=== PATIENT | female | born 1975 | race Two or more races ===

== ENCOUNTER → 2024-10-22 | Outpatient (CLI) | payer MEDICAID, SELFPAY ==
--- NOTE | 2024-10-22 | XR_ITS ---
Examination: MRI abdomen with intravenous contrast. MRI abdomen without intravenous contrast. Date and time of exam: October 22, 2024 1612 hours INDICATIONS: Upper abdominal pain one year, solid-appearing mass anterior margin left kidney on CT abdomen pelvis November 24, 2023 Technique: Multiple axial, sagittal and coronal sections of the abdomen obtained. Transverse images, TR 6020, TE 107. T1 weighted transverse images, TR 582, TE 9.5. T2-weighted sagittal images, TR 4000, TE 105. T2-weighted sagittal images, TR 4000, TE 5. Coronal images, TR 4210, TE 107. Axial and coronal images are obtained post 20 cc intravenous injection, gadolinium. Findings: Hepatomegaly 19 cm tiny numerous liver cysts No intrahepatic biliary tract dilatation Absent gallbladder Normal common hepatic common bile duct Spleen not enlarged No pancreatic mass Bilateral benign renal cysts, the largest anterior margin left kidney 15 mm No mass anterior to the left kidney is noted on this study No ascites Aorta normal size No abdominal lymphadenopathy IMPRESSION: Hepatomegaly, 19 cm Bilateral benign renal cysts, the largest anterior margin left kidney 15 mm No renal solid mass lesion No mass anterior to the left kidney is noted on this study, recommend 3 month follow-up CT scan abdomen post intravenous contrast to compare with the November 24, 2023 exam
== END | disposition home or self-care (01) ==
LOC: SMRI 15:44
PROVIDERS: PCP Family Medicine; Referring Provider Physician Assistant; Visit Provider Physician Assistant
DX: N28.89 Other specified disorders of kidney and ureter (principal); R16.0 Hepatomegaly, not elsewhere classified; N28.1 Cyst of kidney, acquired
CPT/HCPCS: 74183; A9579

== ENCOUNTER 2025-03-25 05:03 | Emergency (ER) | payer MEDICAID, SELFPAY ==
[2025-03-25 05:10] VITALS: BP 127/78; PULSE 93; RESP 18; TEMP 37.4; O2SAT 98
[2025-03-25 05:11] VITALS: BMI 35.8
[2025-03-25] MEDS: DEXAMETHASONE SOD PHOS INJ 10 MG/ML VIAL PO (05:25)
--- NOTE | 2025-03-25 05:40 | EDNOTE_ITS ---
Upper Respiratory Inf. RME/HPI General Chief Complaint: Dental/Oral/Throat Stated Complaint: SORE THROAT Time Seen by Provider: 03/25/25 05:38 Arrival date/time: 03/25/25 05:03 49F with no significiant PMH presents to ED with 3 days of sore throat and some difficulty swallowing. Patient denies cough. Limitations: no limitations Related Data Previous Rx's ?Medication ?Instructions ?Recorded acetaminophen 500 mg capsule 1,000 mg (2 x 500 mg) PO TID #30 04/24/23 caps ibuprofen 600 mg tablet 600 mg PO TID PRN pain #30 t abs 04/24/23 amoxicillin 875 mg-potassium 1 tab PO BID 10 days #20 tabs 03/25/25 clavulanate 125 mg tablet Allergies Allergy/AdvReac Type Severity Reaction Status Date / Time morphine Allergy Verified 03/25/25 05:04 Review of Systems Review of Systems Systems Reviewed: All systems reviewed, normal except as documented ENT Ears, Nose, Mouth, and Throat: Reports sore throat and Reports throat swelling Allergic/Immunologic Allergic/Immunologic: Reports throat swelling Past Medical History Past Medical History CARDIAC: Negative Congestive Heart Failure RESPIRATORY: Negative Chronic Obstructive Pulmonary Disease (COPD) GENITOURINARY: Negative Renal Disease ENDOCRINE: Negative Diabetes Mellitus Type 1 or Diabetes Mellitus Type 2 PSYCHO/SOCIAL: Positive Depression and Anxiety OTHER HISTORY: Negative Cancer Surgical History SURGICAL: Positive Abdominal Surgery Social History SMOKING STATUS: Current every day smoker ED Exam General Limitations: Present no limitations General appearance: Present alert and in no apparent distress Head Head exam: Present atraumatic ENT ENT exam: Present mucous membranes moist Expanded ENT Exam Throat exam: Present tonsillar erythema, tonsillomegaly, tonsillar exudate and muffled voice (some); Absent R peritonsillar mass or L peritonsillar mass Neck Neck exam: Present normal inspection, full ROM and trachea midline Chest Chest inspection: Present normal inspection and symmetric chest wall rise Neurological Exam Neurological exam: Present alert and oriented X3 Psychiatric Psychiatric exam: Present normal affect and normal mood Skin Skin exam: Present warm, dry, intact and normal color Course Quality Measures none Orders Category Date Time Status Strep A Rapid Stat Lab 03/25/25 05:15 Completed Dexamethasone Inj [Decadron Inj] Med 03/25/25 05:13 Discontinued 10 mg PO X1 ONE Vital Signs Vital signs: Vital Signs Temperature 99.4 F 03/25/25 05:10 Pulse Rate 93 03/25/25 05:10 Respiratory Rate 18 03/25/25 05:10 Blood Pressure 127/78 03/25/25 05:10 Pulse Oximetry (%) 98 03/25/25 05:10 Oxygen Delivery Method Room Air 03/25/25 05:10 O2 at 98% on RA and WNLs Upper Respiratory Infection MDM Narrative MDM Narrative:: 49F with no significiant PMH presents to ED with 3 days of sore throat and some difficulty swallowing. Patient denies cough. Physical exam reveals red and swollen oropharynx with exudates. Some muffled voice. No uvula deviation. No tongue elevation. Patient is afebrile, calm, and alert. Swabs neg. Will still treat based on presentation, possible false neg, and to help it not progress to abscess. Patient data External records reviewed:: [facility] previous records Clinical information provided by:: patient Social determinants that could affect healthcare access:: none Patient has the following chronic illnesses:: none How is presenting disease/condition affected by chronic disease/condition?: no chronic disease Evaluation data The following diagnostics were reviewed and interpreted by me:: lab results Lab and/or radiology exams considered but not ordered:: ordered Interpretation Summary: above Medications / Prescriptions Medications or Prescriptions considered but not ordered:: ordered Medication administrations:: Medication Administration History Discontinued Medications Dexamethasone Sodium Phosphate (Dexamethasone Sod Phos Inj 10 Mg/Ml Vial) 10 mg PO X1 ONE Stop: 03/25/25 05:14 Last Admin: 03/25/25 05:25 Dose: 10 mg Documented By: CVL above Consultations Consultation(s) initiated? (list below): No Diagnosis Upper Respiratory Differential Diagnosis: upper respiratory infection, croup, otitis media, sinusitis, viral infection, bronchitis, influenza, pharyngitis and other (tonsillitis) Most likely diagnosis given after review of the tests above:: tonsillitis Admission Indicated Admission indicated?: not indicated Admission Request Was there a request for admission?: No Disposition Plan Disposition Plan: Discharge Discharge Attestation Discharge Attestation: The patient and all family members were given an opportunity to ask questions and understood the discharge instructions. Discharge instructions specifically effects, indications for sooner follow up or return to the emergency department, and the expected course of current diagnosis. Patient condition: Stable Discharge Plan Plan Patient Disposition: HOME (Self Care) Discharge Disposition comment: Stable Prescriptions/Referrals Prescriptions/Med Rec: New amoxicillin-pot clavulanate 875-125 mg tablet 1 tab PO BID 10 Days Qty: 20 0RF No Action ibuprofen 600 mg tablet 600 mg PO TID PRN (Reason: pain) Qty: 30 0RF acetaminophen 500 mg capsule 1,000 mg PO TID Qty: 30 0RF Referrals: No Primary/Family,Physician [Primary Care Provider] - In 1 week Problem List Clinical Impression: Tonsillitis Patient/Caregiver Discharge Instructions Education Materials: Tonsillitis in Adults Additional Instructions: Please follow-up with PCP within 24-48 hours and return immediately if symptoms worsen. Ibuprofen/Tylenol can be used simultaneously for greater fever/pain control. Print Language: Danish Stand Alone Forms: Patient Portal Info Letter MARJORIE/NATHANAEL Supervising Physician MARJORIE/NATHANAEL Supervising Physician: Dr. Acosta
[2025-03-25 05:42] VITALS: RESP 14
== END 2025-03-25 05:44 | disposition home or self-care (01) ==
PROVIDERS: Emergency Provider Emergency Medicine
DX: J03.90 Acute tonsillitis, unspecified (principal); F17.210 Nicotine dependence, cigarettes, uncomplicated
CPT/HCPCS: 87651; 99281; J1100